=== PATIENT | male | born 1970 | race Caucasian/White ===

== ENCOUNTER 2022-07-25 06:26 | Observation (INO) | payer OTHER ==
[2022-07-25] MEDS ORDERED: OXYMETAZOLINE HCL 0.05% 15ML NAS ONE ×2 (06:28→09:28)
[2022-07-25] MEDS ORDERED: NA CHLORIDE 0.9% 2,000 ML ONE ×2 (06:36→06:49)
[2022-07-25] MEDS ORDERED: TRANEXAMIC ACID 1,000 MG/10 ML VIAL IV ONE (06:44)
[2022-07-25 07:07] LABS: Absolute Lymphocytes (CBC) 3.6 K/uL (0.7-4.9); Hematocrit 38.2 % (39.6-49.0); Lymphocytes % 32.9 % (15.3-44.8); MCV 92.6 fL (80-100); MPV 7.8 fL (7.6-11.3); RBC Red Blood Cell Count 4.13 M/uL (4.33-5.43)
[2022-07-25 07:19] LABS: Troponin High Sensitivity 4.7 pg/mL (<58.9)
[2022-07-25 07:20] LABS: Potassium 3.1 mmol/L (3.5-5.1)
[2022-07-25] MEDS ORDERED: ONDANSETRON 4 MG/2 ML VIAL ONE ×2 (08:03→10:14)
--- NOTE | 2022-07-25 08:06 | EDPHYS ---
Physician Documentation [facility] Name: Robert Chavarria Age: 52 yrs Sex: Male : 1970 Arrival Date: 07/25/2022 Time: 06:27 Bed 17 Private MD: ED Physician Eduard Villarreal HPI: 07/25 08:29 This 52 yrs old Male presents to ER via EMS with complaints of Nosebleed. ms3 08:29 52-year-old male presents via [facility] for epistaxis that began 15 minutes prior to ms3 calling EMS. Patient estimates his nose has been bleeding for 30 minutes. Patient states his symptoms are improving. Patient denies pain. Patient denies alleviating or inciting factors.. Historical: - Allergies: 07:24 No Known Allergies; ke1 - PMHx: 07:27 None; ke1 - Immunization history:: Client reports receiving the 2nd dose of the Covid vaccine. - Social history:: Smoking status: Patient denies any tobacco usage or history of. ROS: 08:29 Constitutional: Negative for fever, and chills. ms3 08:29 Cardiovascular: Negative for chest pain, and palpitations. Respiratory: Negative for shortness of breath, cough, wheezing, and pleuritic chest pain, Abdomen/GI: Negative for abdominal pain, nausea, vomiting, diarrhea, and constipation, MS/Extremity: Negative for injury and deformity, Skin: Negative for injury, rash, and discoloration, Neuro: Negative for headache, weakness, numbness, tingling. Psych: Negative for depression, anxiety, suicide ideation, homicidal ideation, and hallucinations. 08:29 ENT: Positive for Epistaxis. Exam: 06:21 ECG was reviewed by the Attending Physician. ms3 08:29 Constitutional: This is a well developed, well nourished patient who is awake, alert, ms3 and in no acute distress. Head/Face: Normocephalic, atraumatic. 08:29 Chest/axilla: Normal chest wall appearance and motion. Nontender with no deformity. Cardiovascular: Regular rate and rhythm with a normal S1 and S2. No gallops, murmurs, or rubs. Normal PMI, no JVD. No pulse deficits. Respiratory: Lungs have equal breath sounds bilaterally, clear to auscultation and percussion. No rales, rhonchi or wheezes noted. No increased work of breathing, no retractions or nasal flaring. 08:29 ENT: Nose: bleeding, is noted from both nares, and is minimal, clotted blood, in both nares, Mouth: No blood noted going down posterior pharynx. 08:29 Skin: Appearance: Color: pale, Temperature: cool, Moisture: diaphoretic. Vital Signs: 06:21 BP 53 / 43; Pulse 65; Pulse Ox 95% ; ke1 06:30 BP 104 / 89; Pulse 86; Pulse Ox 95% ; ke1 06:34 BP 115 / 81; Pulse 77; Pulse Ox 95% ; ke1 06:39 BP 127 / 95; Pulse 64; Pulse Ox 96% on R/A; ke1 06:55 BP 108 / 74; Pulse 72; Pulse Ox 93% on R/A; ke1 07:15 BP 129 / 94; Pulse 61; Resp 16; Pulse Ox 98% on R/A; mb8 07:36 Temp 96.7(A); mb8 MDM: 06:28 Patient medically screened. ms3 06:31 ED course: Discussed case with Dr Crowell and she recommends TXA. Agrees with blood. ms3 Once stable she will be in to see patient.. 08:29 Data reviewed: vital signs, nurses notes, lab test result(s), and as a result, I will ms3 admit patient. Counseling: I had a detailed discussion with the patient and/or guardian regarding: the need for further work-up and treatment in the hospital. ED course: On arrival to the emergency department when patient was moved from the EMS stretcher to the emergency department stretcher he had a syncopal episode that lasted approximately 10 seconds. Patient then awoke and was diaphoretic. Patient then had 2 seizures and patient's blood pressure was noted to be in the 70s systolic and decreasing to the 50s systolic. The level 1 transfuser was moved into the room and 2 units of O- blood were transfused. 1 g of transischemic acid was administered. Patient's blood pressure improved after PRBCs and TXA. Dr. Crowell was consulted and saw patient in the emergency department. Patient went to the operating room with Dr. Crowell. 07/25 06:30 Order name: Basic Metabolic Panel ms3 07/25 06:30 Order name: CBC with Diff ms3 07/25 06:30 Order name: Troponin HS ms3 07/25 06:34 Order name: ABO/RH typing EDMS 07/25 06:34 Order name: RBC Leukored Pheresis EDMS 07/25 06:58 Order name: Antibody Screen EDMS 07/25 06:30 Order name: EKG; Complete Time: 06:31 ms3 07/25 06:30 Order name: Cardiac monitoring; Complete Time: 07:11 ms3 07/25 07:42 Order name: ABO/RH no charge EDMS 07/25 06:30 Order name: EKG - Nurse/Tech; Complete Time: 07:11 ms3 07/25 06:30 Order name: IV Saline Lock; Complete Time: 07:11 ms3 07/25 06:30 Order name: Labs collected and sent; Complete Time: 07:11 ms3 07/25 06:30 Order name: O2 Per Protocol; Complete Time: 07:12 ms3 07/25 06:30 Order name: O2 Sat Monitoring; Complete Time: 07:12 ms3 EC:21 Rate is 65 beats/min. Rhythm is regular. QRS [place] is Normal. [place] interval is normal. ms3 Clinical impression: NSR w/ Non-specific ST/T Changes. Interpreted by me. Reviewed by me. Administered Medications: 06:26 Drug: NS 0.9% 1000 ml Route: IV; Rate: 1 bolus; Site: right antecubital; ke1 06:26 Drug: NS 0.9% 1000 ml Route: IV; Rate: 1 bolus; Site: right antecubital; ke1 06:35 Drug: Tranexamic Acid 1000 mg Route: IV; Rate: calculated rate; Site: right antecubital;ke1 07:50 Drug: Zofran (Ondansetron) 4 mg Route: IVP; Site: right antecubital; mb8 Disposition Summary: 07/25/22 08:05 Hospitalization Ordered Hospitalization Status: Observation ms3 Provider: Laurie Crowell ms3 Location: Telemetry/MedSurg (observation) ms3 Condition: Stable ms3 Problem: new ms3 Symptoms: are unchanged ms3 Bed/Room Type: Standard ms3 Room Assignment: ms3 Diagnosis - Epistaxis ms3 - Syncope ms3 - Hypotension, unspecified ms3 Discharge Instructions: - Discharge Summary Sheet eb Forms: - SBAR form eb - Medication Reconciliation Form ms3 Critical care time excluding procedures: 08:29 Critical care time: Bedside Care: 60 minutes, Consultation: 10 minutes, Family ms3 Intervention: 5 minutes. Total time: 75 minutes Signatures: Dispatcher [employer] EDEduard Warner DO DO ms3 Yadiel Aguilar RN RN ke1 Darrell Wong RN RN mb8 Corrections: (The following items were deleted from the chart) 07:31 07:01 TYPE AND SCREEN+BB.LAB.BRZ ordered. EDMS EDMS
--- NOTE | 2022-07-25 08:06 | ER ---
Nurse's Notes [facility] Name: Robert Chavarria Age: 52 yrs Sex: Male : 1970 Arrival Date: 07/25/2022 Time: 06:27 Bed 17 Private MD: Diagnosis: Epistaxis;Syncope;Hypotension, unspecified Presentation: 07/25 06:20 Chief complaint: Patient states: Profusely bleeding from nose after work while walking ke1 to his car. Risk Assessment: Do you want to hurt yourself or someone else? Patient reports no desire to harm self or others. 06:20 Acuity: TONI 2 ke1 06:20 Method Of Arrival: EMS [facility] 06:20 Onset of symptoms was July 25, 2022 at 06:00. 1 07:23 Initial Sepsis Screen: Does the patient meet any 2 criteria? No. Patient's initial [facility] sepsis screen is negative. Does the patient have a suspected source of infection? No. Patient's initial sepsis screen is negative. 07:30 Coronavirus screen: Vaccine status: Patient reports receiving the 2nd dose of the covid ke1 vaccine. Ebola Screen: No symptoms or risks identified at this time. Triage Assessment: 06:20 General: Appears uncomfortable, Behavior is cooperative. Pain: Denies pain. Neuro: ke1 Ley Agitation-Sedation Scale (RASS): -1 Drowsy Level of Consciousness is listless. Respiratory: Airway via oral airway Trachea midline Respiratory effort is even, unlabored, Respiratory pattern is regular, blood from nostrils. Historical: - Allergies: 07: No Known Allergies; ke1 - PMHx: 07:27 None; ke1 - Immunization history:: Client reports receiving the 2nd dose of the Covid vaccine. - Social history:: Smoking status: Patient denies any tobacco usage or history of. Screenin:27 Abuse screen: Denies threats or abuse. Denies injuries from another. Nutritional mb8 screening: No deficits noted. Tuberculosis screening: No symptoms or risk factors identified. Fall Risk None identified. 07:27 Abuse screen: Denies threats or abuse. Nutritional screening: No deficits noted. ke1 Tuberculosis screening: No symptoms or risk factors identified. Fall Risk No fall in past 12 months (0 pts). No secondary diagnosis (0 pts). IV access (20 points). Ambulatory Aid- None/Bed Rest/Nurse Assist (0 pts). Gait- Normal/Bed Rest/Wheelchair (0 pts) Mental Status- Oriented to own ability (0 pts). Total Beasley Fall Scale indicates No Risk (0-24 pts). Assessment: 06:20 Reassessment: Patient arrived bleeding from the nose and slowly loosing consciousness, ke1 low BP on monitor, emergency blood transfusion ordered. 07:26 Cardiovascular: pale, cool. Rhythm is sinus rhythm. Respiratory: Breath sounds are mb8 clear bilaterally. 08:00 General: Patient started bleeding again, reports it is running down his throat. Dr. ayush Villarreal and Dr. Smallwood made aware and came to bedside quickly. ENT was paged. Surgery RN came to bedside, I gave her report and they took patient to surgery. Bleeding slowed down significantly as patient was leaving for OR. . Vital Signs: 06:21 BP 53 / 43; Pulse 65; Pulse Ox 95% ; ke1 06:30 BP 104 / 89; Pulse 86; Pulse Ox 95% ; ke1 06:34 BP 115 / 81; Pulse 77; Pulse Ox 95% ; ke1 06:39 BP 127 / 95; Pulse 64; Pulse Ox 96% on R/A; ke1 06:55 BP 108 / 74; Pulse 72; Pulse Ox 93% on R/A; ke1 07:15 BP 129 / 94; Pulse 61; Resp 16; Pulse Ox 98% on R/A; mb8 07:36 Temp 96.7(A); mb8 ED Course: 06:25 Inserted saline lock: 20 gauge in right antecubital area, using aseptic technique. by jagdeep Ward Charge nurse. 06:27 Patient arrived in ED. mw2 06:27 Eduard Villarreal DO is Attending Physician. ms3 07:21 Triage completed. ke1 07:26 Darrell Wong, SANDRA is Primary Nurse. mb8 07:27 Patient has correct armband on for positive identification. Placed in gown. Bed in low mb8 position. Call light in reach. Side rails up X2. 07:35 Inserted saline lock: 20 gauge in left wrist, using aseptic technique. by Sylvia gannon charge nurse. 08:05 Laurie Crowell MD is Hospitalizing Provider. ms3 08:09 Assist provider with nosebleed control. mb8 08:09 Patient admitted, IV remains in place. mb8 Administered Medications: 06:26 Drug: NS 0.9% 1000 ml Route: IV; Rate: 1 bolus; Site: right antecubital; ke1 06:26 Drug: NS 0.9% 1000 ml Route: IV; Rate: 1 bolus; Site: right antecubital; ke1 06:35 Drug: Tranexamic Acid 1000 mg Route: IV; Rate: calculated rate; Site: right antecubital;ke1 07:50 Drug: Zofran (Ondansetron) 4 mg Route: IVP; Site: right antecubital; mb8 Outcome: 08:05 Decision to Hospitalize by Provider. ms3 08:08 Admitted to accompanied by nurse, via stretcher, with chart, Report called to Surgery mb8 RN at bedside 08:08 critical 08:09 Patient left the ED. [email or web address] Signatures: Bud Silverman mw2 Eduard Villarreal DO DO ms3 Yadiel Aguilar, RN RN ke1 Darrell Wong RN RN [email or web address] Corrections: (The following items were deleted from the chart) 07:23 07:20 Chief complaint: Patient states: Profusely bleeding from nose ke1 ke1 07:23 07:20 Risk Assessment: Do you want to hurt yourself or someone else? Patient reports no ke1 desire to harm self or others. ke1 07:23 07:20 Method Of Arrival: EMS [facility] ke1 07:23 07:20 Acuity: TONI 2 ke1 ke1 07:31 06:20 Chief complaint: Patient states: Profusely bleeding from nose ke1 ke1 07:34 06:20 Reassessment: Patient arrived bleeding from the nose and slowly loosing ke1 consciousness, low BP on monitor, emergency blood transfusion ordered ke1
--- NOTE | 2022-07-25 08:16 | P.HP ---
Certification for Inpatient Patient admitted to: Observation With expected LOS: <2 Midnights Practitioner: I am a practitioner with admitting privileges, knowledge of patient current condition, hospital course, and medical plan of care. Services: Services provided to patient in accordance with Admission requirements found in Title 42 Section 412.3 of the Code of Federal Regulations Patient History Date of Service: 07/25/22 Reason for admission: Epistaxis History of Present Illness: The patient presented with sudden severe epistaxis while at work early this morning. He was brought by EMS due to the degree of bleeding. EMS reported that he had soaked several towels worth of blood and had bled for at least 15 minutes prior to calling EMS. The patient underwent nasal surgery in his home state of [place] and is in the area working. When transferred from the EMS stretcher to the ER bed, the patient appeared to lose consciousness. He was noted to have a systolic blood pressure in the 70s. He was stabilized by the emergency room including transfusion of 2 units of packed red blood cells and administration of tranexamic acid. At the time of my initial assessment, the patient had a nasal clamp in place with some blood on the face but no active bleeding anteriorly or posteriorly. Given the severity of the patient's condition on arrival to the ER, I initially recommended a period of observation to allow the patient to stabilize overall since he did not appear to be actively bleeding. I was subsequently notified approximately 15 minutes later that the patient had some vomiting and subsequent recurrence of significant nasal bleeding which appeared to be coming from both sides. I conferred with the patient's surgeon in [place], Dr. Mickey Harvey. He reported that the patient underwent maxillary antrostomy and turbinate reduction. 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 He placed Merocel packing in the nasal cavity at the time of surgery which was removed in Dr. Harvey's office on postoperative day 3. There was no significant intraoperative bleeding and no bleeding at the time of packing removal. Dr. Harvey suspects that the eschar from the inferior turbinate may have come off resulting in bleeding and recommended placement of Merocel packing to the nose. Allergies No Known Allergies Allergy (Unverified 07/25/22 08:32) - Past Medical/Surgical History Past Medical History: Patient denies medical history -: Nasal surgery last week Review of Systems is unable to be obtained Physical Examination - Physical Exam General: Alert, Moderate distress HEENT: Atraumatic, Normocephalic, Other (active bilateral nasal bleeding, spitting up blood clots. Right rhinorocket placed.) - Studies Laboratory Data (last 24 hrs) 07/25/22 06:48: WBC 10.90, Hgb 13.6, Hct 38.2 L, Plt Count 256 07/25/22 06:48: Sodium 136, Potassium 3.1 L, BUN 12, Creatinine 1.10, Glucose 132 H Assessment and Plan - Plan Postsurgical hemorrhage, epistaxis, status post nasal surgery. Proceed to operating room for exam under anesthesia, nasal endoscopy, nasal packing and control of epistaxis. Given the severity of the bleeding, we will plan to place him under observation after surgery to monitor his vitals and laboratory studies. - Advance Directives Does patient have a Living Will: No Does patient have a Durable POA for Healthcare: No
[2022-07-25] MEDS ORDERED: Ringers Lactate 1,000 ML IV ONE (08:25)
[2022-07-25] MEDS ORDERED: SUCCINYLCHOLINE 20 MG/ML (10 ML) IV ONE (08:27)
[2022-07-25] MEDS ORDERED: FENTANYL CITR 100 MCG/2 ML ONE (08:39)
[2022-07-25] MEDS ORDERED: propofoL 200 MG/20 ML VIAL IV ONE (08:39)
[2022-07-25] MEDS ORDERED: MIDAZOLAM HCL 2 MG/2 ML INJ ONE (08:39)
[2022-07-25] MEDS ORDERED: ROCURONIUM 50 MG/5 ML VIAL IV ONE (08:39)
[2022-07-25] MEDS ORDERED: Phenylephrine HCl 10 MG/ML 1 ML VIAL ONE (09:11)
[2022-07-25] MEDS: LIDOCAINE 1% W/EPI 1:100,000 10 ML VIAL ONE ×2 (09:21→09:28)
[2022-07-25] MEDS ORDERED: NEOSTIGMINE 1 MG/ML -10 ML VIAL ONE (09:46)
[2022-07-25] MEDS ORDERED: GLYCOPYRROLATE 0.2 MG/ML SYR ONE (09:46)
[2022-07-25] MEDS: MEPERIDINE HCL 25 MG/ML SYR ONE ×2 (10:15→10:25)
[2022-07-25] MEDS: SOD CHLORIDE 0.65% NASAL SPRAY NAS SCH ×4 (12:00→18:50)
[2022-07-25] MEDS ORDERED: NA CHLORIDE 0.9% 1,000 ML IV SCH (12:00)
[2022-07-25 13:11] LABS: Hematocrit 41.1 % (39.6-49.0)
[2022-07-25 13:33] VITALS: BMI 24.5
[2022-07-25] MEDS ORDERED: ALBUTEROL 2.5 MG/3 ML NEB SOL ONE (13:59)
--- NOTE | 2022-07-25 16:23 | P.OP ---
Alterations Manager: NONE,NONE Preoperative diagnosis: postoperative hemorrhage Postoperative diagnosis: same Primary procedure: nasal endoscopy with control of epistaxis Secondary procedure: same Anesthesia: general Estimated blood loss: 20ml Specimen: none Findings: diffuse oozing at IT sites and B MM Operative Technique: After adequate plane of anesthesia, the head of bed was turned 90 degrees and the patient was prepped for sinus surgery including nasal endoscopy. Due to the clinical circumstance, standard prep including packing with Afrin-soaked pledgets was not performed. The 0 degree endoscope and suction were used to initially assess the left nasal cavity. Clot and areas of blood were suctioned. The inferior turbinate was significantly excised and there was active oozing along the cut surface which was cauterized with suction Bovie cautery. The middle turbinate was gently medialized and fresh blood and clot was noted within the middle meatus and suctioned. Afrin-soaked pledgets were applied to the middle meatus and middle turbinate for several minutes. The area was reinspected and a small area along the middle turbinate was cauterized. After cauterization, the left nasal cavity appeared hemostatic and Afrin-soaked pledgets were applied while attention was turned to the right side. The right nasal cavity was obstructed with a Rhino Rocket which had been placed in the operating room. This was carefully deflated and removed. After suctioning of clot, the nasal cavity and middle meatus were packed with Afrin- soaked pledgets. Small areas of oozing along the cut surface of the inferior turbinate were cauterized with suction Bovie cautery. Overall the bleeding appeared to be controlled. All pledgets were removed and the count was confirmed correct. Posisep dissolvable sinus packing was placed in the bilateral middle meatus. Additional Posisep was cut lengthwise and stacked [id number], and placed under endoscopic guidance into the nasal cavity along the cut surface of the inferior turbinates. These dressings were then thoroughly soaked with sterile saline. No additional bleeding was noted. An orogastric tube was passed for removal of stomach contents with significant coffee-ground material and old/partially digested blood. Due to the amount of material, several aliquots of saline were used for gastric lavage and additional suctioning of blood from the stomach in order to reduce risk of postoperative nausea and vomiting. The orogastric tube was then removed and the oral cavity and oropharynx were carefully examined. There was no evidence of bleeding flowing from the nose or nasopharynx into the oral cavity. The procedure was then concluded and the patient was returned to care of anesthesia for awakening extubation in the operating room which proceeded without difficulty. Due to the critical nature of the patient's condition on initial admission with receipt of transfusion by the ER, decision was made to place the patient under observation for serial lab draws and to monitor for any additional bleeding. Plan duration of stay will depend on the patient's overall condition. Complications: None Implants: Posisep 1 to each middle meatus and 1 to each nasal cavity Fluids & blood products: See anesthesia record Transferred to: Recovery Room Condition: Good
[2022-07-25 19:21] LABS: Hematocrit 35.7 % (39.6-49.0)
--- NOTE | 2022-07-26 10:20 | P.DS ---
Admission Date: 07/25/22 Discharge Date: 07/25/22 Discharge Condition: FAIR Reason for Admission: Epistaxis Procedures: bilateral nasal endoscopy with control of epistaxis Brief History of Present Illness: The patient presented with sudden severe epistaxis while at work early this morning. He was brought by EMS due to the degree of bleeding. EMS reported that he had soaked several towels worth of blood and had bled for at least 15 minutes prior to calling EMS. The patient underwent nasal surgery in his home state of [place] and is in the area working. When transferred from the EMS stretcher to the ER bed, the patient appeared to lose consciousness. He was noted to have a systolic blood pressure in the 70s. He was stabilized by the emergency room including transfusion of 2 units of packed red blood cells and administration of tranexamic acid. At the time of my initial assessment, the patient had a nasal clamp in place with some blood on the face but no active bleeding anteriorly or posteriorly. Given the severity of the patient's condition on arrival to the ER, I initially recommended a period of observation to allow the patient to stabilize overall since he did not appear to be actively bleeding. I was subsequently notified approximately 15 minutes later that the patient had some vomiting and subsequent recurrence of significant nasal bleeding which appeared to be coming from both sides. I conferred with the patient's surgeon in [place], Dr. Mickey Harvey. He reported that the patient underwent maxillary antrostomy and turbinate reduction. 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 He placed Merocel packing in the nasal cavity at the time of surgery which was removed in Dr. Harvey's office on postoperative day 3. There was no significant intraoperative bleeding and no bleeding at the time of packing removal. Dr. Harvey suspects that the eschar from the inferior turbinate may have come off resulting in bleeding and recommended placement of Merocel packing to the nose. Hospital Course: Patient was admitted after surgery for observation, to ensure control of bleeding and monitor hemodynamics and serial labs/H&H due to severity of condition on ER presentation. H&H was acceptable. Patient was seen around 6PM and tolerating liquids with no nasal bleeding. Vital Signs/Physical Exam: Temp Pulse Resp BP Pulse Ox 98.4 F 76 15 127/74 96 07/25/22 16:00 07/25/22 16:00 07/25/22 16:00 07/25/22 16:00 07/25/22 16:00 General: Alert, In no apparent distress HEENT: Atraumatic, Other (right nasal cavity packing. left packing deeper and not visible. No active bleeding.) Laboratory Data at Discharge: WBC 10.90 K/uL (4.3-10.9) 07/25/22 06:48 Hgb 12.5 g/dL (13.6-17.9) L D 07/25/22 18:53 Hct 35.7 % (39.6-49.0) L 07/25/22 18:53 Plt Count 256 K/uL (152-406) 07/25/22 06:48 Sodium 136 mmol/L (136-145) 07/25/22 06:48 Potassium 3.1 mmol/L (3.5-5.1) L 07/25/22 06:48 BUN 12 mg/dL (7-18) 07/25/22 06:48 Creatinine 1.10 mg/dL (0.55-1.3) 07/25/22 06:48 Glucose 132 mg/dL (74-106) H 07/25/22 06:48 Home Medications: NK [No Home Meds] 07/25/22 Physician Discharge Instructions: nasal saline spray every 2 hours while awake. Nasal precautions, no nose blowing, no heavy lifting or bending. Contact Dr Crowell's office for any bleeding or other concerns Followup: AKSHAT ODEN [Primary Care Provider] - Time spent managing pt's care (in minutes): 20
[2022-07-26 18:51] VITALS: BP 129/94; O2SAT 98
[2022-07-26 18:53] VITALS: TEMP 96.7
--- NOTE | 2022-07-27 14:12 | EKG ---
Test Date: 2022-07-25 Test Time: 06:21:41 Brazer Assembler: SÁNCHEZ MEASUREMENT RESULTS: Intervals: Rate: 65 MT: 146 QRSD: 80 QT: 378 QTc: 393 [place]: P: MT: 146 QRS: 215 T: 182 INTERPRETIVE STATEMENTS: Suspect arm lead reversal, interpretation assumes no reversal Normal sinus rhythm Lateral infarct, age undetermined Abnormal ECG No previous ECG available for comparison Electronically Signed On 07-27-22 14:09:32 CDT by Harsha Kat
== END 2022-07-25 20:41 | disposition home or self-care (01) ==
LOC: ER 06:26 → ERHOLD 08:13 → 4TH 09:28
PROVIDERS: ADMIT Otolaryngology; ATTEND Otolaryngology
PROC: 30233N1 Transfusion of Nonautologous Red Blood Cells into Peripheral Vein, Percutaneous Approach (ICD-10-PCS; 2022-07-25)
PROC: 093K8ZZ Control Bleeding in Nasal Mucosa and Soft Tissue, Via Natural or Artificial Opening Endoscopic (ICD-10-PCS; principal; 2022-07-25 10:00)
DX: J95.830 Postprocedural hemorrhage of a respiratory system organ or structure following a respiratory system procedure (principal); I95.9 Hypotension, unspecified; R55 Syncope and collapse; Z98.890 Other specified postprocedural states
CPT/HCPCS: 93005; 85025; 80048; 36415; 86900; 86850; 86901; 85018 ×2; 85014 ×2; 84484; 96375; 96374; 99285; 31238; 36430; J2704; J2710; J0330; J2370; J2250; J3010; J2175; G0378; P9016 ×2; J7120; J7030 ×3; J2405 ×2